=== PATIENT | female | born 1960 | race Caucasian/White ===

== ENCOUNTER → 2020-04-09 13:14 | Outpatient (CLI) | payer OTHER, SELFPAY ==
[2020-04-10 22:24] LABS: COVID19 Sendout Not Detected (Not Detect)
== END ==
PROVIDERS: Visit Provider Physician Assistant
DX: Z11.59 Encounter for screening for other viral diseases (principal)
CPT/HCPCS: 87635

== ENCOUNTER → 2020-04-12 09:05 | Outpatient (CLI) | payer OTHER, SELFPAY ==
--- NOTE | 2020-04-12 18:08 | DI.NM.S_ITS ---
DATE OF SERVICE: 04/12/2020 PROCEDURE: Exercise perfusion study. INDICATIONS: Chest pain. RADIOPHARMACEUTICAL: 25.6 millicurie technetium-99m Myoview IV was injected at stress and 14.5 millicurie technetium-99m Myoview IV was injected at rest. CARDIAC STRESS: The patient underwent exercise perfusion study under the supervision of an attending staff. She walked on Nicho protocol for 7 minutes 23 seconds and achieved 96 percent of target heart rate, normal blood pressure response, functional aerobic impairment -9 percent. Baseline rhythm was sinus. During stress, no convincing ischemic changes. There were no significant arrhythmias. The patient did not have any chest pain, but felt some shortness of breath and chest tightness. The patient did exercise using a mask all the time. RAW DATA: Significant breast shadow seen. GATED STUDY: Stress LV ejection fraction 73 percent without any obvious wall motion abnormalities. Resting end-diastolic volume 97 mL. TID ratio 0.90, which is within normal limits. Lung/heart ratio 0.37, which is within normal limits. MYOCARDIAL PERFUSION: Stress supine and resting supine images revealed large size, moderate to severely decreased perfusion of the anterior wall, anteroapex and anteroseptum, which got significantly improved during prone images. However, prone images remain have mildly decreased perfusion of anterior wall. No reversible ischemia. CONCLUSION: I will call this study likely a normal myocardial perfusion study with evidence of significant breast tissue attenuation artifact, which got significantly improved during prone images. However, prone images remain have mildly decreased perfusion of anterior wall. There is some persistent tissue attenuation artifact, as well. The patient has normal wall motion, which goes against the diagnosis of previous transmural myocardial infarction. Significant breast shadow was seen during raw images. On surface EKG, no obvious evidence of anterior wall myocardial infarction. Hence, most likely we are dealing with tissue attenuation artifact. Good exercise tolerance. Overall, this is a low- risk myocardial perfusion scan. Correlate clinically. Yvette Coulmba - [facility]/[place] doc#: [id number]/job#: [id number] dd: 04/12/2020 17:44:00 dt: 04/12/2020 17:55:00 DICTATING MD/COPIES TO: Francisco Ceron MD COPIES MNE: ERIC;
== END ==
PROVIDERS: PCP Physician Assistant Medical; Referring Provider Physician Assistant Medical; Visit Provider Physician Assistant Medical
DX: R07.9 Chest pain, unspecified (principal)
CPT/HCPCS: 78452; 93017; A9502